=== PATIENT | male | born 1985 | race Caucasian/White ===

== ENCOUNTER → 2016-04-29 | Outpatient (CLI) | payer BC ==
[~2016-04-29] MED LIST: ALBU18002 INH; LANS30CA12 PO; SERT25TA PO; ZNTT/150 PO
--- NOTE | 2016-04-29 10:51 | DIAGNOSTIC IMAGING REPORT ---
GI SERIES W/AIR ROUTINE CLINICAL HISTORY: Dysphagia, heartburn, reflux. COMPARISON STUDY: None FLUOROSCOPY TIME: 2 minutes. 25 fluoroscopic spot images are provided for interpretation.. FINDINGS: The patient swallowed effervescent granules and barium without difficulty. No esophageal masses or ulcerations are visualized. No gastric masses or ulcerations are visualized. The duodenal bulb appears normal. The ligament of Treitz is located in the normal anatomical position. IMPRESSION: Normal study Electronically signed by: Alex Conrad M.D. 04/29/2016 10:50 AM
== END | disposition home or self-care (01) ==
LOC: C.RAD 10:09
PROVIDERS: ATTEND Registered Nurse
DX: K21.9 Gastro-esophageal reflux disease without esophagitis (principal); R13.13 Dysphagia, pharyngeal phase

== ENCOUNTER → 2016-06-25 | Day surgery (SDC) | payer BC ==
[2016-06-16 09:12] VITALS: Ht 170.2 cm; Wt 78.2 kg
[~2016-06-25] VITALS: Ht 170.2 cm; Wt 78.2 kg
[~2016-06-25] MED LIST changes: +LIDOCAINE HCL 2% 2 ML VIAL (20MG/ML) ONE; +PROPOFOL IV EMULSION 10 MG/ML 20 ML VIAL IV ONE; +SODIUM CHLORIDE 0.9% 500ML 500 ML IV ONE
[2016-06-25 13:08] VITALS: TEMP 36.8
--- NOTE | 2016-06-25 14:33 | Endo History and Physical ---
History & Physical Date of Service: Jun 25, 2016. Chief Complaint: Reflux Referring Physician: Dr Rosario History of Present Illness 31 yo CM who presents for EGD secondary to GERD. Past Surgical History Hx Cardiac Surgery: No Hx Internal Defibrillator: No Hx Pacemaker: No Hx Abdominal Surgery: No Hx of Implantable Prosthesis: No Hx Post-Op Nausea and Vomiting: No Hx Cancer Surgery: No Hx Thoracic Surgery: No Hx Orthopedic: No Hx Urinary Tract Surgery: No Family History IBD Social History Smoking Status: Never Smoker Hx Substance Use: No Hx Alcohol Use: Yes (OCCASIONAL) Allergies Coded Allergies: No Known Allergies (Unverified , 06/25/16) Current Medications Reported Home Medications Medications Dose Route/Sig Max Daily Dose Days Date Category Zoloft (Sertraline HCl) 25 Mg Tab 25 Mg PO HS 06/16/16 Reported Zantac (Ranitidine HCl) 150 Mg Tab 150 Mg PO HS 06/16/16 Reported Proair Respiclick (Albuterol Sulfate) 108 Mcg/Act Aer 2 Puffs INH Q4H PRN 06/16/16 Reported Prevacid (Lansoprazole) 30 Mg Capcr 30 Mg PO QAM 06/16/16 Reported Vital Signs Weight (Kilograms): 78.18 Height (Feet): 5 Height (Inches): 7 Date Time Temp Pulse Resp B/P Pulse Ox O2 Delivery O2 Flow Rate FiO2 06/25/16 13:08 36.8 51 16 143/71 99 Room Air Physical Exam General Appearance: WD/WN, no apparent distress Respiratory/Chest: Auscultation: breath sounds normal Cardiovascular: Heart Auscultation: RRR Abdomen: Bowel Sounds: normal Inspection & Palpation: soft, non-distended, no tenderness, guarding & rebound Assessment and Plan Assessment: 31 yo CM who presents for EGD secondary to GERD. Plan: Proceed with EGD.
--- NOTE | 2016-06-25 15:04 | Discharge Instructions ---
Endoscopy Patient Instructions Date / Procedure(s) Performed Jun 25, 2016. EGD Allergy Information Coded Allergies: No Known Allergies (Unverified , 06/25/16) Discharge Date / Findings Jun 25, 2016. Gastritis s/p biopsies Hiatal hernia Medication Instructions OK to resume all medications today as prescribed. Reported Home Medications Medications Dose Route/Sig Max Daily Dose Days Date Category Zoloft (Sertraline HCl) 25 Mg Tab 25 Mg PO HS 06/16/16 Reported Zantac (Ranitidine HCl) 150 Mg Tab 150 Mg PO HS 06/16/16 Reported Proair Respiclick (Albuterol Sulfate) 108 Mcg/Act Aer 2 Puffs INH Q4H PRN 06/16/16 Reported Prevacid (Lansoprazole) 30 Mg Capcr 30 Mg PO QAM 06/16/16 Reported Provider Instructions Activity Restrictions - No exercising or heavy lifting for 24 hours. - Do not drink alcohol the day of the procedure. - Do not drive a car or operate machinery until the day after the procedure. - Do not make any important decisions or sign important papers in 24 hours after the procedure. Following Day: - Return to full activity which may include returning to work/school. Diet Start your diet with liquids and light foods (jello, soup, juice, toast). Then eat your usual diet if not nauseated. Treatment For Common After Affects For mild abdominal pain, bloating, or excessive gas: - Rest - Eat lightly - Lie on right side Follow-Up Information Follow-up with Dr Rosario as scheduled Anesthesia Information What You Should Know You have had a procedure that required some medicine to reduce anxiety and discomfort. This treatment is called moderate sedation. After receiving the treatment, you may be sleepy, but you will be able to breathe on your own. The effects of the treatment may last for several hours. Follow these instructions along with Activity/Diet recommendations noted above: * Do NOT do anything where dizziness or clumsiness would be dangerous. * Rest quietly at home today, then you can be up and about tomorrow. * Have a responsible person stay with you the rest of today. * You may have had an I.V. today. If so, you may take the dressing off later today. Recommendations Call your doctor if: * Trouble breathing * Continuous vomiting for more than 24 hours * Temperature above 101 degrees * Severe abdominal pain or bloating * Pain not relieved by pain medicine ordered * There is increased drainage or redness from any incision * A large amount of rectal bleeding greater than 2-3 tablespoons. (If you had a polyp/s removed or have hemorrhoids, a small amount of blood - from the rectum is to be expected.) * You have any unanswered questions or concerns. IN THE EVENT OF A SERIOUS EMERGENCY, GO TO THE NEAREST EMERGENCY ROOM Your discharge instructions were prepared by provider Jovan Chong. Patient Instructions Signature Page Shay [place] Patient (or Guardian) Signature/Date: I have read and understand the instructions given to me by my caregivers. Caregiver/RN/Doctor Signature/Date: The above-named patient and/or guardian has received patient instructions on this date. + Original Patient Signature Page (only) stays with chart. Please make copy for patient.
--- NOTE | 2016-06-25 15:24 | Anesthesiology Progress Note ---
Anesthesia Post Op Note Date & Time Jun 25, 2016 at 15:24 Vital Signs Pain Intensity: 0 Vital Signs Past 12 Hours Date Time Temp Pulse Resp B/P Pulse Ox O2 Delivery O2 Flow Rate FiO2 06/25/16 15:15 16 107/49 99 Room Air 06/25/16 15:05 53 16 115/61 97 Room Air 06/25/16 13:08 36.8 51 16 143/71 99 Room Air Notes Mental Status: alert / awake / arousable Nausea / Vomiting: adequately controlled Pain: adequately controlled Airway Patency, RR, SpO2: stable & adequate BP & HR: stable & adequate Hydration State: stable & adequate Anesthetic Complications: no major complications apparent
[2016-06-25 15:34] VITALS: BP 113/58; PULSE 48; O2SAT 99
--- NOTE | 2016-06-26 00:46 | GI REPORT ---
Procedure Date: 06/25/2016 2:55 PM Procedure: Upper GI endoscopy Indications: Gastro-esophageal reflux disease Medicines: Monitored Anesthesia Care Complications: No immediate complications. Estimated Blood Loss: Estimated blood loss: none. Procedure: Pre-Anesthesia Assessment: - Prior to the procedure, a History and Physical was performed, and patient medications and allergies were reviewed. The patient's tolerance of previous anesthesia was also reviewed. The risks and benefits of the procedure and the sedation options and risks were discussed with the patient. All questions were answered, and informed consent was obtained. Prior Anticoagulants: The patient has taken no previous anticoagulant or antiplatelet agents. ASA Grade Assessment: II - A patient with mild systemic disease. After reviewing the risks and benefits, the patient was deemed in satisfactory condition to undergo the procedure. After obtaining informed consent, the endoscope was passed under direct vision. Throughout the procedure, the patient's blood pressure, pulse, and oxygen saturations were monitored continuously. The scope was introduced through the mouth, and advanced to the second part of duodenum. The upper GI endoscopy was accomplished without difficulty. The patient tolerated the procedure well. Findings: The esophagus was normal. A small hiatus hernia was present. Localized mild inflammation characterized by erythema was found in the gastric antrum. Biopsies were taken with a cold forceps for histology. The examined duodenum was normal. Impression: - Normal esophagus. - Small hiatus hernia. - Gastritis. Biopsied. - Normal examined duodenum. Recommendation: - Resume previous diet. - Continue present medications. - Await pathology results. - Return to primary care physician as previously scheduled. Jovan Chong DO 06/25/2016 3:27:19 PM This report has been signed electronically. Note Initiated On: 06/25/2016 2:55 PM I attest to the content of the Intraoperative Record and orders documented therein, exceptions below
== END | disposition home or self-care (01) ==
LOC: C.GI 12:51
PROVIDERS: ATTEND Internal Medicine
DX: K21.9 Gastro-esophageal reflux disease without esophagitis (principal); K29.70 Gastritis, unspecified, without bleeding; K44.9 Diaphragmatic hernia without obstruction or gangrene; Z83.79 Family history of other diseases of the digestive system

== ENCOUNTER → 2016-09-16 | Outpatient (CLI) | payer BC ==
[~2016-09-16] MED LIST changes: -LIDOCAINE HCL 2% 2 ML VIAL (20MG/ML) ONE; -PROPOFOL IV EMULSION 10 MG/ML 20 ML VIAL IV ONE; -SODIUM CHLORIDE 0.9% 500ML 500 ML IV ONE
[2016-09-22 17:37] LABS: IGA SERUM 156 mg/dL (81-463); TIS TRANS IGA 1 U/mL (<4)
== END | disposition home or self-care (01) ==
LOC: C.LAB1850 14:12
PROVIDERS: ATTEND Registered Nurse
DX: K21.9 Gastro-esophageal reflux disease without esophagitis (principal)